=== PATIENT | male | born 1950 | race Caucasian/White ===

== ENCOUNTER → 2021-01-15 | Outpatient (CLI) | payer MEDICARE, BC ==
[~2021-01-15] VITALS: Ht 177.8 cm; Wt 90.7 kg
[~2021-01-15] MED LIST: NORCO 5-325 TA1 EACH PO
== END | disposition home or self-care (01) ==
LOC: OPSV 06:48
DX: M72.0 Palmar fascial fibromatosis [Dupuytren] (principal)
CPT/HCPCS: J0775